=== PATIENT | female | born 1950 | race African-American/Black ===

== ENCOUNTER 2024-09-08 12:53 | Emergency (ER) | payer OTHER, MEDICAID ==
[~2024-09-08] VITALS: Ht 144.8 cm; Wt 54.4 kg
--- NOTE | 2024-09-08 14:13 | ED.PDOC ---
Musculoskeletal HPI Comments 74y F who presents to the ED for chief complaint of lower extremity pain. Pt states she has been having bilateral knee pain with associated L ankle pain for the past few days. Pt denies any recent fall or injury. Pt otherwise denies any other symptoms at this time. Chief Complaint: Lower Extremity Time Seen by MD: 14:11 Reviewed Notes: Medications, Allergies Information Source: Patient Mode of Arrival: Ambulatory Brought in by: family Past Medical History PAST MEDICAL HISTORY: Unknown Surgical History: Unknown SATURATOR History: Unknown Family History Family History: Unknown Social History Smoker: Non-Smoker Alcohol: Denies ETOH Use Drugs: Denies Drug Use Constitutional: denies: chills, diaphoresis, fatigue, fever, malaise, sweats, weakness, others EENTM: denies: blurred vision, double vision, ear bleeding, ear discharge, ear drainage, ear pain, ear ringing, eye pain, eye redness, hearing loss, mouth pain, mouth swelling, nasal discharge, nose bleeding, nose congestion, nose pain, photophobia, tearing, throat pain, throat swelling, voice changes, others Respiratory: denies: cough, hemoptysis, orthopnea, SOB at rest, shortness of breath, SOB with excertion, stridor, wheezing, others Cardiovascular: denies: chest pain, dizzy spells, diaphoresis, Dyspnea on exertion, edema, irregular heart beat, left arm pain, lightheadedness, palpitations, PND, syncope, others Gastrointestinal: denies: abdomen distended, abdominal pain, blood streaked bowels, constipated, diarrhea, dysphagia, difficulty swallowing, hematemesis, melena, nausea, poor appetite, poor fluid intake, rectal bleeding, rectal pain, vomiting, others Genitourinary: denies: abnormal vagina bleeding, burning, dyspareunia, dysuria, flank pain, frequency, hematuria, incontinence, pain, , vagina discharge , urgency, others Neurological: denies: dizziness, fainting, headache, left sided numbness, left sided weakness, numbness, paresthesia, pre-existing deficit, right sided numbness, right sided weakness, seizure, speech problems, tingling, tremors, weakness, others Musculoskeletal: reports: joint pain; denies: back pain, gout, joint swelling, muscle pain, muscle stiffness, neck pain, others Integumetry: denies: bruises, change in color, change in hair/nails, dryness, laceration, lesions, lumps, rash, wounds, others Allergic/Immunocompromised: denies: Difficulty Healing, Frequent Infections, Hives, Itching, others Hematologic/Lymphatic: denies: anemia, blood clots, easy bleeding, easy bruising, swollen glands, others Endocrine: denies: excessive hunger, excessive sweating, excessive thirst, excessive urination, flushing, intolerance to cold, intolerance to heat, unexplained weight gain, unexplained weight loss, others Psychiatric: denies: anxiety, bipolar disorder, depression, hopeless, panic disorder, schizophrenia, sleepless, suicidal, others All Other Systems: Reviewed and Negative Physical Exam General Appearance: No Apparent Distress, Normal HEENT: Normal ENT Inspection, Pharynx Normal, TMs Normal Neck: Full Range of Motion, Non-Tender, Normal, Normal Inspection Respiratory: Chest Non-Tender, Lungs Clear, No Accessory Muscle Use, No Respiratory Distress, Normal Breath Sounds Cardiovascular: No Edema, No JVD, No Murmur, No Gallop, Normal Peripheral Pulses, Regular Rate/Rhythm Breast Exam: Deferred Gastrointestinal: No Organomegaly, Non Tender, No Pulsatile Mass, Normal Bowel Sounds, Soft Genitalia: Deferred Pelvic: Deferred Rectal: Deferred Extremities: Tender (tenderness to R ankle and L knee) Musculoskeletal : Apperance: Normal Neurologic: Alert, senior dentist II-XII nml as Tested, No Motor Deficits, Normal Affect, Normal Mood, No Sensory Deficits Cerebellar Function: Normal Reflexes: Normal Skin: Dry, Normal Color, Warm Lymphatic: No Adenopathy Was a procedure done? Was a procedure done?: No Differential Diagnosis EXT Differential Diagnosis: Cellulitis, Deep Vein Thrombosis, Fracture, Sprain, DJD, Strain, Rheumatoid, Arthritis X-Ray, Labs, Meds, VS Vital Signs Date Time Temp Pulse Resp B/P (MAP) Pulse Ox O2 Delivery O2 Flow Rate FiO2 09/08/24 17:18 76 14 99 Room Air 09/08/24 17:18 98.6 76 14 120/69 (86) 99 98.6 09/08/24 13:32 98.4 84 16 106/40 (62) 100 98.4 [facility] [id number] [place] [id number] Ph: [phone] DIAGNOSTIC IMAGING Diagnostic Imaging Report : [id number] Signed PATIENT: ESTEVAN HATFIELD ACCT: [id number] UNIT: [id number] : 1950 LOC: ER ROOM / BED: / AGE / SEX: 74 / F ADM STATUS: REG ER SERVICE [id number] ORDERING PHYSICIAN: KANCHAN GROVER MD PROCEDURE(s): LANKL - L ANKLE 3 VIEW REASON: PAIN ORDER NUMBER(s): [id number], ACCESSION NUMBER(s): [id number] XY L ANKLE 3 VIEW INDICATION: PAIN TECHNICAL DATA:Frontal , oblique and lateral views were obtained of the left ankle. COMPARISON: None FINDINGS: No fracture is identified. Joint spaces are maintained. Alignment is anatomic. Soft tissues are swollen. IMPRESSION: No acute fracture or dislocation of the left ankle. ATED BY: ALEX ROMERO MD DICTATED DATE/TIME: 09/08/24 153 SIGNED BY: ALEX ROMERO MD SIGNED DATE/TIME: 09/08/24 153 CC: [place] [id number] Ph: [phone] DIAGNOSTIC IMAGING Diagnostic Imaging Report : [id number] Signed PATIENT: ESTEVAN HATFIELD ACCT: [id number] UNIT: [id number] : 1950 LOC: ER ROOM / BED: / AGE / SEX: 74 / F ADM STATUS: REG ER SERVICE 1355 ORDERING PHYSICIAN: KANCHAN GROVER MD PROCEDURE(s): LKNE3 - L KNEE 3V XRAY REASON: pain ORDER NUMBER(s): [id number], ACCESSION NUMBER(s): [id number] XY L KNEE 3V XRAY, INDICATION: pain TECHNICAL DATA: Frontal , oblique and lateral views were obtained of the left knee. COMPARISON: None FINDINGS: No fracture is identified. Partial visualization of a distal femur intramedullary cher and screw appears intact. Medial, lateral and patellofemoral compartment joint spaces are degenerative. Chondrocalcinosis is visualized. Alignment is anatomic. Soft tissues are within normal limits. No joint effusion is demonstrated. Atherosclerosis is visualized. IMPRESSION: Moderate to severe degenerative changes of the knee with chondrocalcinosis. No acute fracture or dislocation of the left knee. Partial visualization of a distal femur intramedullary cher and screw appears intact. ATED BY: ALEX ROMERO MD DICTATED DATE/TIME: 09/08/241451 SIGNED BY: ALEX ROMERO MD SIGNED DATE/TIME: 09/08/241451 CC: [place] [id number] Ph: [phone] DIAGNOSTIC IMAGING Diagnostic Imaging Report : [id number] Signed PATIENT: ESTEVAN HATFIELD ACCT: [id number] UNIT: [id number] : 1950 LOC: ER ROOM / BED: / AGE / SEX: 74 / F ADM STATUS: REG ER SERVICE 54 ORDERING PHYSICIAN: KANCHAN GROVER MD PROCEDURE(s): LLDVT - LT Lower DVT REASON: r/o dvt ORDER NUMBER(s): [id number], ACCESSION NUMBER(s): [id number] LT Lower DVT HISTORY: r/o dvt COMPARISON: None TECHNIQUE: Duplex doppler evaluation of the deep venous system of the lower extremity from the common femoral veins, superficial femoral vein, great saphenous vein, deep femoral vein, popliteal vein, and calf veins, including color doppler and spectral/pulsed waveform analysis, was performed. FINDINGS: Left: - Common femoral vein: Compressible - Deep femoral vein: Compressible - Femoral vein: Compressible - Popliteal vein: Compressible - Posterior tibial vein: Waveforms present - Other: Nothing IMPRESSION: No left lower extremity deep venous thrombosis. ATED BY: ALEX ROMERO MD DICTATED DATE/TIME: 09/08/241515 SIGNED BY: ALEX ROMERO MD SIGNED DATE/TIME: 09/08/241515 CC: [address] [id number] Ph: [phone] DIAGNOSTIC IMAGING Diagnostic Imaging Report : [id number] Signed PATIENT: ESTEVAN HATFIELD ACCT: [id number] UNIT: [id number] : 1950 LOC: ER ROOM / BED: / AGE / SEX: 74 / F ADM STATUS: REG ER SERVICE 1355 ORDERING PHYSICIAN: KANCHAN GROVER MD PROCEDURE(s): RANKL - R ANKLE 3 VIEW REASON: pain ORDER NUMBER(s): [id number], ACCESSION NUMBER(s): [id number] XY R ANKLE 3 VIEW, INDICATION: pain TECHNICAL DATA:Frontal , oblique and lateral views were obtained of the right ankle. COMPARISON: None FINDINGS: No fracture is identified. Joint spaces are maintained. Alignment is anatomic. Soft tissues are swollen. IMPRESSION: No acute fracture or dislocation of the right ankle. ATED BY: ALEX ROMERO MD DICTATED DATE/TIME: 09/08/241532 SIGNED BY: ALEX ROMERO MD SIGNED DATE/TIME: 09/08/241532 CC: Time of 1ST Reevaluation: 14:40 Reevaluation 1ST: Unchanged Patient Education/Counseling: Diagnosis, Treatment Family Education/Counseling: Diagnosis, Treatment Departure 1 Departure Time of Disposition: 18:17 Impression: Primary Impression: Arthritis Disposition: 01 HOME / SELF CARE / HOMELESS Condition: Good Discharged With: Self, Relative Critical Care Note Critical Care Time?: No Stability Stability form required: No Heart Score Heart Score: Heart Score Response (Comments) Value History N/A 0 EKG N/A 0 Age N/A 0 Risk Factors N/A 0 Troponin N/A 0 Total 0 I personally scribed for KANCHAN GROVER MD ([email or web address]) on 09/08/24 at 14:13. Electronically submitted by Ashley BurnsFlower [email or web address]). I personally scribed for KANCHAN GROVER MD ([email or web address]) on 09/08/24 at 16:24. Electronically submitted by Ashley BurnsFlower [email or web address]). KANCHAN GROVER MD September 08, 2024 14:13
--- NOTE | 2024-09-08 14:56 | DVH ---
XY L KNEE 3V XRAY, INDICATION: pain TECHNICAL DATA: Frontal , oblique and lateral views were obtained of the left knee. COMPARISON: None FINDINGS: No fracture is identified. Partial visualization of a distal femur intramedullary cher and screw appea rs intact. Medial, lateral and patellofemoral compartment joint spaces are degenerative. Chondrocalci nosis is visualized. Alignment is anatomic. Soft tissues are within normal limits. No joint effusion is demonstrated. Atherosclerosis is visualized. IMPRESSION: Moderate to severe degenerative changes of the knee with chondrocalcinosis. No acute fracture or dislocation of the left knee. Partial visualization of a distal femur intramedullary cher and screw appears intact.
--- NOTE | 2024-09-08 15:18 | DVH ---
US LT Lower DVT HISTORY: r/o dvt COMPARISON: None TECHNIQUE: Duplex doppler evaluation of the deep venous system of the lower extremity from the common femoral veins, superficial femoral vein, great saphenous vein, deep femoral vein, popliteal vein, an d calf veins, including color doppler and spectral/pulsed waveform analysis, was performed. FINDINGS: Left: - Common femoral vein: Compressible - Deep femoral vein: Compressible - Femoral vein: Compressible - Popliteal vein: Compressible - Posterior tibial vein: Waveforms present - Other: Nothing IMPRESSION: No left lower extremity deep venous thrombosis.
--- NOTE | 2024-09-08 15:35 | DVH ---
XY L ANKLE 3 VIEW INDICATION: PAIN TECHNICAL DATA:Frontal , oblique and lateral views were obtained of the left ankle. COMPARISON: None FINDINGS: No fracture is identified. Joint spaces are maintained. Alignment is anatomic. Soft tissues are swo llen. IMPRESSION: No acute fracture or dislocation of the left ankle.
--- NOTE | 2024-09-08 15:35 | DVH ---
XY R ANKLE 3 VIEW, INDICATION: pain TECHNICAL DATA:Frontal , oblique and lateral views were obtained of the right ankle. COMPARISON: None FINDINGS: No fracture is identified. Joint spaces are maintained. Alignment is anatomic. Soft tissues are swo llen. IMPRESSION: No acute fracture or dislocation of the right ankle.
[2024-09-08 17:18] VITALS: BP 120/69; PULSE 76; RESP 14; TEMP 98.6; O2SAT 99
== END 2024-09-08 18:15 | disposition home or self-care (01) ==
LOC: ER 13:04
DX: M17.12 Unilateral primary osteoarthritis, left knee (principal); M19.072 Primary osteoarthritis, left ankle and foot
CPT/HCPCS: 73562; 73610; 93971